=== PATIENT | female | born 1950 | race Caucasian/White ===

== ENCOUNTER 2024-04-22 15:44 | Emergency (ER) | payer MEDICARE ==
[~2024-04-22] VITALS: Ht 162.6 cm; Wt 68.0 kg
[~2024-04-22 15:44] MED LIST: WIXELA 100-501 EAC1 INH
[2024-04-22 16:44] LABS: Hematocrit 41.6 % (33.0-51.0); Hemoglobin 14.4 g/dL (11.5-16.0); Mean Corpuscular HGB 31.6 pg (26.0-34.0); Mean Corpuscular HGB Conc 34.6 g/dL (31.5-36.5); Mean Corpuscular Volume 91 fL (80-100); Mean Platelet Volume 9.6 fL (9.1-12.4); Platelet Count 176 K/mm3 (150-400); RDW Standard Deviation 44.2 fL (35.1-46.3); Red Blood Cell Count 4.56 M/mm3 (3.80-5.20); White Blood Cell Count 3.74 K/mm3 (4.00-11.30)
[2024-04-22 17:05] LABS: Albumin, Blood 3.4 g/dL (3.4-5.0); Albumin/Globulin Ratio 0.9 (0.8-1.8); Bilirubin, Total 0.4 mg/dL (0.1-1.0); Bun/Creatinine Ratio 22.5 (12.0-20.0); Calcium, Blood 9.3 mg/dL (8.5-10.1); Creatinine, Blood 0.71 mg/dL (0.40-1.00); Globulin, Blood 3.6 g/dL (2.2-4.0)
[2024-04-22 17:09] LABS: BASOPHILS PERCENT MAN 0 % (0-2); EOSINOPHILS PERCENT MAN 0 % (0-6); LYMPHOCYTES ABSOLUTE MAN 1.08 K/mm3 (0.84-5.20); LYMPHOCYTES PERCENT MAN 29 % (21-46); MONOCYTES ABSOLUTE MAN 0.22 K/mm3 (0.16-1.47); MONOCYTES PERCENT MAN 6 % (4-13); NEUTROPHILS ABSOLUTE MAN 2.43 K/mm3 (1.96-9.15); SEG NEUTROPHILS PERCENT MAN 65 % (41-73); TOTAL CELLS COUNTED 100
[2024-04-22] MEDS ORDERED: Acetaminophen 500 MG Tab PO ONE (20:05)
[2024-04-22 20:09] LABS: Influenza B, PCR NEGATIVE (NEGATIVE); Resp Syncytial Virus, PCR NEGATIVE (NEGATIVE); SARS-Cov-2 (COVID-19) PCR, MMC NEGATIVE (NEGATIVE)
[2024-04-22 21:15] LABS: Influenza A, PCR POSITIVE (NEGATIVE)
== END 2024-04-22 21:25 | disposition home or self-care (01) ==
LOC: ER 15:44
PROVIDERS: Student in an Organized Health Care Education/Training Program
DX: J10.1 Influenza due to other identified influenza virus with other respiratory manifestations (principal); Z79.51 Long term (current) use of inhaled steroids
CPT/HCPCS: 0241U; 80053; 85025; 99283; A9270

== ENCOUNTER 2024-06-24 09:58 | Day surgery (SDC) | payer MEDICARE ==
[~2024-06-24] VITALS: Ht 162.6 cm; Wt 67.9 kg
[~2024-06-24 09:58] MED LIST changes: +Lactated Ringer's 1,000 ML IV SCH; +propofoL 20 ML IV ONE; +propofoL 40 ML IV ONE
[2024-06-24 10:32] VITALS: BP 137/90
--- NOTE | 2024-06-24 10:34 | NUR ---
INTO [facility]. HISTORY AND ALLERGIES REVIEWED. LUNGS CLEAR. PT DENIES SOB AT REST. SPO2>90% ON RA. NPO STATUS CONFIRMED. COLON PREP CONFIRMED CLEAR, YELLOW- NO SEDIMENT. PT FRIEND LANCE IS HER RIDE HOME TODAY.
--- NOTE | 2024-06-24 11:04 | NUR ---
06/24/24 1104 Daniel Mcfadden History, Chart, Medications and Allergies reviewed before start of procedure. MONITOR INTACT WITH CONTINUOUS PULSE OXIMETRY, CONTINUOUS END TITAL CO2, 3-LEAD EKG AND INTERMITTENT BLOOD PRESSURE. 3-LEAD EKG REVIEWED WITH PHYSICIAN PRIOR TO START OF PROCEDURE. O2 VIA POM INTACT THROUGHOUT SEDATION/PROCEDURE. Bite Block Placed.
[2024-06-24] MEDS ORDERED: Glycopyrrolate 0.2 MG/ML 5ML VIAL ONE (11:52)
[2024-06-24] MEDS ORDERED: propofoL 20 ML IV ONE (11:56)
[2024-06-24 12:20] VITALS: BP 86/60
[2024-06-24 12:30] VITALS: BP 94/69
[2024-06-24 12:45] VITALS: BP 95/83
[2024-06-24 12:53] VITALS: BP 97/83
--- NOTE | 2024-06-24 13:09 | NUR ---
Patient up to Ambulate independently. Gait steady. Discharge instructions reviewed with patient. Patient verbalizes understanding. Copy given to patient to take home. Patient States Post-Procedure ride home has been arranged. Discharged via wheelchair to private car for ride home. PT REPORTS ABD DISCOMFORT GETTING BETTER, TOLERATING PO. PT REPORTS READY TO GO HOME.
== END 2024-06-24 13:09 | disposition home or self-care (01) ==
LOC: ORSCMMR 09:58 → ORD 11:15 → ORSCMMR 11:15
DX: Z12.11 Encounter for screening for malignant neoplasm of colon (principal); R19.5 Other fecal abnormalities; R10.9 Unspecified abdominal pain; K21.9 Gastro-esophageal reflux disease without esophagitis; D12.3 Benign neoplasm of transverse colon; K56.699 Other intestinal obstruction unspecified as to partial versus complete obstruction; J44.9 Chronic obstructive pulmonary disease, unspecified; I25.10 Atherosclerotic heart disease of native coronary artery without angina pectoris; F17.210 Nicotine dependence, cigarettes, uncomplicated; F32.9 Major depressive disorder, single episode, unspecified; Z79.899 Other long term (current) drug therapy
CPT/HCPCS: 88305; J2704; J7120

== ENCOUNTER → 2025-03-28 | Outpatient (CLI) | payer MEDICARE ==
[~2025-03-28] MED LIST changes: -Lactated Ringer's 1,000 ML IV SCH; -propofoL 20 ML IV ONE; -propofoL 40 ML IV ONE
== END | disposition home or self-care (01) ==
LOC: LAB SHORT 18:02 → LAB 18:02
DX: R82.90 Unspecified abnormal findings in urine (principal)
CPT/HCPCS: 87077; 87086; 87186